=== PATIENT | male | born 1990 | race Caucasian/White ===

== ENCOUNTER 2019-07-13 13:48 | Inpatient (IN) | payer MEDICAID, OTHER ==
[~2019-07-13] VITALS: Ht 165.1 cm; Wt 56.2 kg
[2019-07-13 13:53] VITALS: BP 121/77
--- NOTE | 2019-07-13 13:59 | NUR ---
PT IN WHEELCHAIR TO ER BED 09
--- NOTE | 2019-07-13 14:10 | NUR ---
c/o multiple spider bites to bilat legs. x 4 days. pt temp 100.3 and hr 120. Pt admits to drinking 3-4 shots of vodka & smoking meth today to help cope with the pain. Pt awake , alert , afibrile ,sce,cbs blf, flat nabs , nontender,rt leg nodule , inflamed c/o pain 5/1o . hx: none rx: none
--- NOTE | 2019-07-13 14:11 | NUR ---
dr cervantes at bedside evaluating pt.
[2019-07-13] MEDS ORDERED: NACL 0.9% 1,000 ML IV SCH (14:21)
[2019-07-13] MEDS ORDERED: VANCOMYCIN 1,000 MG in DEXTROSE 5% 250 ML IV ONE (14:25)
[2019-07-13] MEDS ORDERED: MORPHINE SULFATE 4 MG/ML SYR IVP ONE (14:25)
[2019-07-13] MEDS ORDERED: VANCOMYCIN 1,000 MG VIAL ONE ×2 (14:33→22:41)
[2019-07-13 14:50] LABS: BASOPHILS # (AUTO) 0.1 K/uL (0.00-0.22); BASOPHILS % (AUTO) 0.8 % (0.0-2.0); EOSINOPHILS # (AUTO) 0.2 K/uL (0-0.4); EOSINOPHILS % (AUTO) 1.4 % (0.0-4.0); HEMATOCRIT 47.3 % (36-52); HEMOGLOBIN 15.8 g/dL (12.0-18.0); LYMPHOCYTES # (AUTO) 1.4 K/uL (2.0-11.5); LYMPHOCYTES % (AUTO) 10.5 % (20.5-51.1); MEAN CORPUSCULAR HEMOGLOBIN 31 pg (27-31); MEAN CORPUSCULAR HGB CONC 33 g/dL (33-37); MEAN CORPUSCULAR VOLUME 92.9 fL (80-94); MONOCYTES # (AUTO) 1.2 K/uL (0.8-1.0); MONOCYTES % (AUTO) 9.3 % (1.7-9.3); NEUTROPHILS # (AUTO) 10.2 K/uL (1.8-7.7); PLATELET COUNT (AUTO) 368 K/uL (140-450); RED CELL DISTRIBUTION WIDTH 13.7 % (11.6-13.7); WHITE BLOOD COUNT (AUTO) 13.1 K/uL (4.8-10.8)
--- NOTE | 2019-07-13 14:53 | NUR ---
xray at bedside.
[2019-07-13 15:16] LABS: ALBUMIN 3.1 g/dL (3.4-5.0); ANION GAP 13.1 (8-16); CARBON DIOXIDE 27.9 mmol/L (21-32); CREATININE 0.8 mg/dL (0.6-1.3); TOTAL BILIRUBIN 0.3 mg/dL (0.0-1.0)
--- NOTE | 2019-07-13 15:16 | NUR ---
pt lying in bed comfortably ,pt awake ,alert, no complaint ,side rails up x2 and lock.
--- NOTE | 2019-07-13 15:56 | NUR ---
pt to br doing number 2 via wheelchair awake ,alert.
--- NOTE | 2019-07-13 16:00 | NUR ---
pt back from br via wheelchair collected urine .
[2019-07-13 16:15] LABS: APPEARANCE,URINE CLEAR (CLEAR); BILIRUBIN,URINE NEGATIVE (NEGATIVE); BLOOD, URINE NEGATIVE (NEGATIVE); COLOR,URINE YELLOW (YELLOW); LEUKOCYTE ESTERASE ,URINE NEGATIVE (NEGATIVE); NITRITE, URINE NEGATIVE (NEGATIVE); UGLUCOSE NEGATIVE (NEGATIVE)
[2019-07-13] MEDS ORDERED: ACETAMINOPHEN 325 MG TAB PO PRN (16:25)
[2019-07-13] MEDS ORDERED: ONDANSETRON 4 MG/2 ML VIAL IM/IVP PRN (16:25)
[2019-07-13] MEDS ORDERED: MORPHINE SULFATE 2 MG/ML SYR IVP PRN (16:25)
[2019-07-13] MEDS ORDERED: DOCUSATE SODIUM 100 MG GELCAP PO PRN (16:25)
[2019-07-13] MEDS ORDERED: NACL 0.9% 1,000 ML IV ONE (16:35)
[2019-07-13] MEDS ORDERED: PIPERACILLIN/TAZOBACTAM 3.375 GM in DEXTROSE 5% 50 ML IV ONE (16:35)
[2019-07-13] MEDS ORDERED: LIDOCAINE MPF 1% 5 ML ONE (16:40)
--- NOTE | 2019-07-13 16:50 | NUR ---
dr cervantes lidocaine verbal order for i and d procedure charge nurse ryan informed and aware.
[2019-07-13 16:54] LABS: BARBITURATE, URINE NEGATIVE ng/ml (NEG <=200); BENZODIAZEPINE, URINE NEGATIVE ng/mL (NEG <=200)
[2019-07-13 16:55] LABS: PHENCYCLIDINE SCREEN,URINE NEGATIVE ng/mL (NEG <=25)
[2019-07-13 16:56] LABS: CANNABINOID, URINE NEGATIVE ng/mL (NEG <=50); COCAINE, URINE NEGATIVE ng/mL (NEG <=300); OPIATE, URINE POSITIVE ng/mL (NEG <=2000)
[2019-07-13 17:00] LABS: MAGNESIUM 2.3 mg/dL (1.8-2.4); PHOSPHORUS 2.5 mg/dL (2.5-4.9); THYROID STIMULATING HORMONE 0.45 uIU/mL (0.34-3.74)
[2019-07-13] MEDS ORDERED: KETOROLAC 30 MG/ML VIAL IVP ONE (17:00)
[2019-07-13] MEDS ORDERED: KETOROLAC 30 MG/ML VIAL IVP SCH (17:10)
--- NOTE | 2019-07-13 17:10 | NUR ---
Patient will be admitted to care of dr garcia . Admited to [facility] . Will go to room 112 b [place] list completed. Report to edy maldonado.
--- NOTE | 2019-07-13 17:10 | NUR ---
RECEIVED REPORT FROM ER NURSE. ADMITTED 28 Y/O MALE WITH A CC OF SPIDER BITES BEHIND THE LEGS, DX OF CELLULITIS AND ABSCESS OF RIGHT LEG. AOX4, VERBAL IN MALAGASY, AMBULATORY WITH ASSIST, WITH C/O ACHING PAIN ON LEGS 610, NO SOB. FULL CODE, NO KNOWN ALLERGIES. WITH IV ON L AC 20G. STARTED ON NS 100CC/HR ORDERED. I&D DONE IN ER. PROVIDED ORIENTATION ON HOSPITAL ENVIRONMENT. REVIEWED PLAN OF CARE. PT VERBALIZED UNDERSTANDING. CALL LIGHT WITHIN REACH. WILL CONT TO MONITOR.
[2019-07-13] MEDS ORDERED: VANCOMYCIN PER PHARMACY MC PRN (17:15)
[2019-07-13] MEDS ORDERED: PIPERACILLIN/TAZOBACTAM 3.375 GM VIAL IV ONE ×2 (17:40→21:07)
--- NOTE | 2019-07-13 17:45 | NUR ---
TORADOL IVP AND ZOSYN IVPB GIVEN ORDERED. INFUSING WELL.
[2019-07-13] MEDS: NACL 0.9% 1,000 ML IV SCH (17:46)
[2019-07-13] MEDS ORDERED: KETOROLAC 30 MG/ML VIAL IVP PRN (18:15)
[2019-07-13] MEDS ORDERED: VANCOMYCIN HCL 1,250 MG in NACL 0.9% 250 ML IV SCH (18:35)
--- NOTE | 2019-07-13 19:25 | NUR ---
RECEIVED ENDORSEMENT FROM RN DAYSHIFT NURSES AT BEDSIDE FOR CONTINUITY CARE. PT SLEEPING IN BED RESPIRATIONS EVEN AND UNLABORED. IV SITE LAC 20 GUAGE INTACT AND ASYMPTOMATIC RUNNING NORMAL SALINE AT 100MLS/HR. ALL UNIVERSAL FALLS PRECAUTIONS IN PLACE.
--- NOTE | 2019-07-13 19:26 | NUR ---
ENDORSED TO TEMPERER NURSE FOR CONTINUITY OF CARE. PT IN STABLE CONDITION
[2019-07-13 20:00] VITALS: BP 105/58
[2019-07-13] MEDS: PIPERACILLIN/TAZOBACTAM 3.375 GM in DEXTROSE 5% 50 ML IV SCH (21:12)
--- NOTE | 2019-07-13 21:15 | NUR ---
PT IN BED AOX4, HE SAID THAT HE WAS ABLE TO SAFELY GO TO THE RESTROOM ON HIS OWN. PT HAS 2 DRESSING FROM POST I AND D IN ER. RIGHT DRESSING WAS BLEEDING THROUGH , MORE PRESSURE DRESSINGS APPLIED TO LEG. LEFT DRESSING HAD MINIMAL BLOODY DRAINAGE, WHICH WAS ALSO REINFORCED. PT WAS GIVEN DUE MEDS OF IV ABT ZOSYN EDUCATION REGARDING MEDICATION PROVIDED AT BEDSIDE INCLUDING SIDE EFFECTS, PT VERBALIZED UNDERSTANDING. PT V/S FOLLOWS T 98.3 P 63 R 16 B/P 105/58. PT DENIES PAIN AT THIS TIME ANDS ALL REQUESTED NEEDS ATTENDED BY STAFF.
[2019-07-13] MEDS ORDERED: VANCOMYCIN 500 MG VIAL ONE (22:40)
--- NOTE | 2019-07-13 23:00 | NUR ---
VANCOMYCIN HUNG AND RUNNING AT 167MLS/HR ORDERED. PT DENIES ANY PAIN DRESSINGS OF R AND LEFT LEGS ARE DRY AND INTACT. IV SITE INTACT AND ASYMPTOMATIC. ALL UNIVERSAL FALLS PRECAUTIONS IN PLACE.
--- NOTE | 2019-07-14 01:00 | NUR ---
PT IN BED RESTING BUT AROUSABLE TO NAME, PT REQUESTED FOOD WHICH WAS BROUGHT TO HIM. HE DENIES ANY PAIN AT THIS TIME. V/S FOLLOWS: T 98.6 P 88 R 18 B/P 100/58 02 98%. ALL UNIVERSAL FALLS PRECAUTIONS IN PLACE.
[2019-07-14] MEDS ORDERED: PIPERACILLIN/TAZOBACTAM 3.375 GM VIAL IV ONE (05:31)
[2019-07-14] MEDS: NACL 0.9% 1,000 ML IV SCH ×3 (05:41→23:22)
[2019-07-14] MEDS: PIPERACILLIN/TAZOBACTAM 3.375 GM in DEXTROSE 5% 50 ML IV SCH ×2 (05:41→13:14)
[2019-07-14 06:07] LABS: BASOPHILS # (AUTO) 0.1 K/uL (0.00-0.22); BASOPHILS % (AUTO) 0.7 % (0.0-2.0); EOSINOPHILS # (AUTO) 0.4 K/uL (0-0.4); EOSINOPHILS % (AUTO) 4.1 % (0.0-4.0); HEMATOCRIT 41.4 % (36-52); LYMPHOCYTES # (AUTO) 1.4 K/uL (2.0-11.5); LYMPHOCYTES % (AUTO) 13.3 % (20.5-51.1); MEAN CORPUSCULAR HEMOGLOBIN 31 pg (27-31); MEAN CORPUSCULAR HGB CONC 34 g/dL (33-37); MEAN CORPUSCULAR VOLUME 93.2 fL (80-94); MONOCYTES # (AUTO) 1.1 K/uL (0.8-1.0); MONOCYTES % (AUTO) 10.7 % (1.7-9.3); NEUTROPHILS # (AUTO) 7.6 K/uL (1.8-7.7); NEUTROPHILS % (AUTO) 71.2 % (42.2-75.2); PLATELET COUNT (AUTO) 337 K/uL (140-450); RED BLOOD CELL COUNT(AUTO) 4.44 MIL/uL (4.20-6.10); RED CELL DISTRIBUTION WIDTH 13.5 % (11.6-13.7); WHITE BLOOD COUNT (AUTO) 10.7 K/uL (4.8-10.8)
[2019-07-14 06:28] LABS: ANION GAP 10.3 (8-16); CARBON DIOXIDE 29.7 mmol/L (21-32)
[2019-07-14 06:31] LABS: CHOL/HDL RATIO 2.6 (1-4.5)
[2019-07-14 06:42] LABS: MAGNESIUM 2.2 mg/dL (1.8-2.4); PHOSPHORUS 2.8 mg/dL (2.5-4.9)
--- NOTE | 2019-07-14 07:30 | NUR ---
RECEIVED REPORT FROM COLLECTIONS OFFICER NURSE, PARMINDER, FOR CONTINUITY OF CARE. PT IS RESTING IN BED, AROUSABLE TO VOICE. A&OX4. RESPIRATIONS ARE EVEN AND UNLABORED, BREATHING TO RA. IV IS PATENT AND INTACT, RUNNING PER MD ORDERS. STATUS POST I&D, ON LEG, DRESSING IN PLACE. SAFETY MEASURES IN PLACE; CALL LIGHT WITHIN REACH, BED IN LOW POSITION. NO DISTRESS NOTED. WILL CONTINUE TO MONITOR.
[2019-07-14 08:00] VITALS: BP 118/48
--- NOTE | 2019-07-14 08:25 | NUR ---
PATIENT HAS BEEN SCREENED AND CATEGORIZED LOW NUTRITION RISK. PATIENT WILL BE SEEN WITHIN 7 DAYS OF ADMISSION. 07/20/[address]
[2019-07-14] MEDS: LACTOBACILLUS RHAMNOSUS GG 1 EACH CAP PO SCH (09:32)
--- NOTE | 2019-07-14 09:32 | NUR ---
ADMINISTERED MED PER MD ORDER, MED EDUCATION PROVIDED AND PT VERBALIZED OK. PT IS AWAKE AND RESTING ON BED AT THIS TIME. DENIED PAIN, SOB AND DIZZINESS. NO SIGNS OF DISTRESS NOTED. PT REQUESTED FOR PAULO, PROVIDED. SAFETY MEASURES IN PLACE. INSTRUCTED PT TO USE THE CALL LIGHT FOR ANY ASSISTANCE AND PT AWARE.
--- NOTE | 2019-07-14 10:10 | NUR ---
WOUND CARE EVALUATION NOTE: WOUND CARE ASSESSMENT DONE TO THIS 28 Y/O M WITH S/P I&D TO RIGHT POSTERIOR KNEE AND LEFT CALF. PT. IS AAX4, PER PT. HE GOT A SPIDER BITES BUT NEVER SEEN AN SPIDER. PT. HAD AN I&D AT ED. POC DISCUSSED WITH PRIMARY RN, DR. TORRES AND PT. PT. VERBALIZES UNDERSTANDING. - LEFT CALF S/P I&D WOUND 0.3X0.3X0.2CM WOUND BED IS 100% PINK, MOIST, NO ODOR, TING-WOUND SKIN INTACT, PAIN 0/10 -RIGHT POPLITEAL FOSSA S/P I&D WOUND 2X2.5X0.1CM WOUND BED IS LIGHT BROWN, MODERATE AMOUNT PURULENT DRAINAGE WITH MILD ODOR, TING-WOUND SKIN INTACT WITH INDURATION, PAIN 0/10 RECOMMENDATIONS: -SURGEON TO CONSULT -CLEANSE RIGHT POSTERIOR KNEE AND LEFT CALF WITH NS. PAT DRY, APPLY BACITRACIN OINTMENT AND COVER WITH DRY DRESSING CHANGE QD AND PRN IF SOILING.
--- NOTE | 2019-07-14 10:23 | NUR ---
DISCHARGE PLANNING: THIS IS A 28 Y/O MALE PATIENT FROM HOME, WHO CAME IN DUE TO BILATERAL LEG PAIN. NO SIGNIFICANT PAST MEDICAL HISTORY. INITIAL DIAGNOSIS OF CELLULITIS AND ABSCESS OF THE RIGHT LEG. CURRENT LABS INCLUDE WBC 10.7, H/H 14.0/41.4, NA/K 141/4.0, BUN/CREA 18/1.0. ON VANCOMYCIN IV AND ZOSYN. ID CONSULT IN PLACE. DC PLAN BACK TO HOME ONCE STABLE. Addendum: 07/15/19 at 1420 by Hanna Leslie CM DC PLANNING S/P I&D OF RIGHT POSTERIOR KNEE ABSCESS. AND LEFT POSTERIOR CALF AND THIGH PUSTULES BY DR MEYER , SEEN BY DR MONTANA WALDROP RECOMMENDED TO DC ZOSYN AND CONTINUE VANCOMYCIN IV AND AWAITING FOR WOUND CULTURES. CM TO FOLLOW.
[2019-07-14] MEDS: VANCOMYCIN 750 MG in DEXTROSE 5% 250 ML IV SCH ×2 (11:20→23:25)
--- NOTE | 2019-07-14 11:20 | NUR ---
PT IS SLEEPING IN BED, AROUSABLE TO VOICE. VANCO IVP WAS HUNG AND RUNNING ACCORDING TO MD ORDERS. MEDICATION EDUCATION PROVIDED TO PATIENT. NPO WAS ORDERED BY MD, INFORMED PT. SIGN POSTED BY DOOR. NO DISTRESS NOTED. SAFETY MEASURES IN PLACE. WILL CONTINUE TO MONITOR.
[2019-07-14] MEDS: BACITRACIN OINT 15000 UNITS/30 GM TUBE TP SCH (13:00)
--- NOTE | 2019-07-14 13:14 | NUR ---
DR MEYER EXPLAINED TO PT ABOUT I&D ON LEGS, EXPLAINED TO PT ON RISKS AND BENEFITS, PT AWARE. CONSENT OBTAINED. PT IS AWAKE AND RESTING ON BED. NO SIGNS OF DISTRESS NOTED. SAFETY MEASURES IN PLACE.
--- NOTE | 2019-07-14 13:19 | NUR ---
PT'S SCHEDULED ANTIBIOTIC WAS HUNG, MED EDUCATION PROVIDED. CRYSTAL REPORT DEVELOPER DONE WOUND CARE EARLIER, DRESSING CLEAN AND INTACT. PT IS RESTING ON BED. NO SIGNS OF NOTED. SAFETY MEASURES IN PLACE.
--- NOTE | 2019-07-14 13:25 | NUR ---
PT IS OFF UNIT TO OR AND ACCOMPANIED WITH OR NURSES. PT IS IN STABLE CONDITION.
[2019-07-14] MEDS ORDERED: BUPIVACAINE-MPF 0.5% 30 ML VIAL INJ ONE ×2 (13:37→13:55)
[2019-07-14] MEDS ORDERED: fentaNYL 0.05 MG/ML VIAL ONE (13:38)
[2019-07-14] MEDS ORDERED: KETOROLAC 30 MG/ML VIAL ONE (13:38)
[2019-07-14] MEDS ORDERED: PROPOFOL 200 MG/20 ML VIAL IV ONE (13:38)
[2019-07-14] MEDS ORDERED: BUPIVACAINE-MPF 0.5% 10 ML VIAL INJ ONE (13:38)
[2019-07-14] MEDS ORDERED: ONDANSETRON 4 MG/2 ML VIAL ONE (13:38)
[2019-07-14] MEDS ORDERED: SEVOFLURANE 250 ML BTL INH ONE (13:38)
--- NOTE | 2019-07-14 14:50 | NUR ---
PT IS BACK ON UNIT FROM THE OR. VITAL SIGNS TAKEN: TEMP 97.9, BP 104/64, PULSE 73, RR 18, SPO2 98%, DENIED PAIN. PT REQUESTED FOR A SANDWICH AND WILL PAGE FNS. PT IS EATING JELLO AT THIS TIME. NO SIGNS OF DISTRESS NOTED.
[2019-07-14 16:00] VITALS: BP 110/57
--- NOTE | 2019-07-14 17:00 | NUR ---
PT IS RESTING IN BED, AROUSABLE TO VOICE. NO DISTRESS NOTED. SAFETY MEASURES IN PLACE. WILL CONTINUE TO MONITOR.
--- NOTE | 2019-07-14 19:15 | NUR ---
RECEIVED REPORT FROM RIGOBERTO RN DAYSHIFT NURSES AT BEDSIDE FOR CONTINUITY OF CARE, PT IN STABLE CONDITION. PT IN BED RESTING WITH EYES CLOSED, BUT AROUSABLE TO NAME. PT HAS IV SITE LAC 20G INTACT AND RUNNING NORMAL SALINE AT 100MLS/HR. PT HAS 2 BANDAGED SITES ON LEFT LEG FROM 2ND I AND D TODAY. BAND-AIDS HAVE MINIMAL SEROSANGUINEOUS DRAINAGE. ON RIGHT LEG PT HAS KURLEX COVERED BANDAGE WITH MINIMAL SEROSANGUINEOUS DRAINAGE WELL. PT DENIES PAIN AT THIS TIME. V/S FOLLOWS: T 97.9 P 67 R 16 B/P 104/56 02 97% ON ROOM AIR. ALL UNIVERSAL FALLS PRECAUTIONS IN PLACE.
--- NOTE | 2019-07-14 19:18 | NUR ---
GAVE REPORT TO [facility] CONTACT REPRESENTATIVE NURSE, PARMINDER, FOR CONTINUITY OF CARE. PT IS RESTING IN BED. PT IS IN STABLE CONDITION.
[2019-07-14] MEDS: HYDROcodone/APAP 7.5/325 MG 1 TAB PO PRN (21:21)
--- NOTE | 2019-07-14 21:30 | NUR ---
PT IN BED C/OF MODERATE PAIN IN NECK 5/10, WELL BEING HUNGRY. PT WAS GIVEN 1 TAB NORCO PO/PRN ORDERED. PT ALSO GIVEN REQUESTED FOOD. WILL CONTINUE TO MONITOR PT FOR PAIN RELIEF.
--- NOTE | 2019-07-14 23:12 | NUR ---
NEW BAG OF NORMAL SALINE HUNG WELL ORDERED IV ABT VANCOMYCIN HUNG AND RUNNING AT 165MLS/HR ORDERED. PT JOSE G PAIN IN BED RESTING WITH EEYS CLOSED . ALL FALLS PRECAUTIONS IN PLACE.
[2019-07-15] VITALS: BP 92/52
[2019-07-15 06:12] LABS: HEPATITIS A ANTIBODY IGM Negative (Negative); HEPATITIS B CORE AB TOTAL Negative (Negative); HEPATITIS B SURFACE ANTIBODY Reactive (.); HEPATITIS B SURFACE ANTIGEN Negative (Negative)
--- NOTE | 2019-07-15 07:10 | NUR ---
RECEIVED PT. FROM HEAD OF MEASUREMENT & INSIGHTS NURSEPAMRINDER. PT. IS ASLEEP AND IN BED. IV SITE ON THE RIGHT FOREARM 20G WITH NS RUNNING AT 100ML/HR. IV SITE IS PATENT AND FLUSHES WELL. PT. IS ON ROOM AIR WITH O2 STAT AT 97%. NO SIGNS OF DISTRESS NOTED AND PT. VERBALIZES NO PAIN. CALL LIGHT WITHIN REACH. PLAN OF CARE DISCUSSED. WILL CONTINUE TO MONITOR.
[2019-07-15 08:00] VITALS: BP 112/58
[2019-07-15 08:30] LABS: BASOPHILS # (AUTO) 0.1 K/uL (0.00-0.22); BASOPHILS % (AUTO) 1.1 % (0.0-2.0); EOSINOPHILS # (AUTO) 0.6 K/uL (0-0.4); EOSINOPHILS % (AUTO) 6.4 % (0.0-4.0); HEMATOCRIT 42.4 % (36-52); HEMOGLOBIN 14.1 g/dL (12.0-18.0); LYMPHOCYTES # (AUTO) 1.6 K/uL (2.0-11.5); MEAN CORPUSCULAR HEMOGLOBIN 31 pg (27-31); MEAN CORPUSCULAR HGB CONC 33 g/dL (33-37); MEAN CORPUSCULAR VOLUME 94.2 fL (80-94); MONOCYTES # (AUTO) 0.7 K/uL (0.8-1.0); MONOCYTES % (AUTO) 8.3 % (1.7-9.3); NEUTROPHILS # (AUTO) 5.9 K/uL (1.8-7.7); NEUTROPHILS % (AUTO) 66.2 % (42.2-75.2); PLATELET COUNT (AUTO) 347 K/uL (140-450); RED CELL DISTRIBUTION WIDTH 13.6 % (11.6-13.7)
[2019-07-15 08:40] LABS: ANION GAP 10.2 (8-16); CARBON DIOXIDE 28.3 mmol/L (21-32); CREATININE 0.9 mg/dL (0.6-1.3); POTASSIUM 4.5 mmol/L (3.5-5.1)
[2019-07-15 08:44] LABS: PHOSPHORUS 3.3 mg/dL (2.5-4.9)
--- NOTE | 2019-07-15 09:05 | NUR ---
LABORATORY CALLED FOR POSITIVE OF MRSA OF THE NARES. REPORTED TO DR. ELIZABETH. WILL PLACE ORDER. WILL CONTINUE TO MONITOR.
[2019-07-15] MEDS: LACTOBACILLUS RHAMNOSUS GG 1 EACH CAP PO SCH (10:45)
[2019-07-15] MEDS: VANCOMYCIN 1,000 MG in DEXTROSE 5% 250 ML IV SCH ×2 (10:45→21:00)
--- NOTE | 2019-07-15 10:45 | NUR ---
VANCOCIN IV GIVEN. NO SIGNS OF DISTRESS NOTED. PT. COMPLAINS BEING HUNGRY AFTER BREAKFAST AND REQUESTS TO EAT A SANDWICH. WILL FOLLOW THROUGH AND CONTINUE TO MONITOR.
[2019-07-15] MEDS ORDERED: MUPIROCIN CA NASAL 2% 1GM TUBE NS SCH (13:00)
[2019-07-15] MEDS: BACITRACIN OINT 15000 UNITS/30 GM TUBE TP SCH (13:00)
[2019-07-15] MEDS ORDERED: CHLORHEXADINE GLUC 2% CLOTH TP SCH (13:00)
--- NOTE | 2019-07-15 13:00 | NUR ---
WOUND DRESSINGS AND BACITRACIN OINTMENT PLACED ON WOUNDS. NO SIGNS OF DISTRESS NOTED. MINIMAL DISCHARGE WERE SEEN AND WOUND SITES WERE ASSESSED. WILL CONTINUE TO MONITOR.
[2019-07-15] MEDS: NACL 0.9% 1,000 ML IV SCH ×2 (14:43→21:00)
--- NOTE | 2019-07-15 15:25 | NUR ---
LABORATORY CALLED FOR PRESUMPTIVE POSITIVE OF MRSA FROM LEG WOUND CULTURE. REPORTED TO DR. ANN. NO NEW ORDERS GIVEN. WILL CONTINUE TO MONITOR.
[2019-07-15 16:00] VITALS: BP 104/65
--- NOTE | 2019-07-15 19:15 | NUR ---
ENDORSED PT. TO IMMUNOHEMATOLOGIST NURSE, PATRICIA, FOR CONTINUITY OF CARE.
--- NOTE | 2019-07-15 19:26 | NUR ---
RECEIVED PATIENT FROM AM SHIFT NURSE IN STABLE CONDITION FOR CONTINUITY OF CARE. RESPIRATIONS EVEN, UNLABORED. IV SITE NOTED TO RIGHT FOREARM 20G PATENT/INTACT, INFUSING FLUIDS WELL. NO C/O PAIN. NO S/SX ACUTE DISTRESS. ISOLATION PRECAUTIONS OBSERVED. CALL LIGHT WITHIN REACH. WILL CONTINUE TO MONITOR.
--- NOTE | 2019-07-15 19:30 | NUR ---
RECD. RESTING IN BED, RESPIRATION EVEN AND UNLABORED. IV OF NS AT 100 ML/HR INFUSING, RIGHT FOREARM G22. SURGICAL INCISION IN THE BACK OF RIGHT KNEE AND LEFT LEG COVERED WITH DRESSING, DRY AND INTACT. PLAN OF CARE FOR THE SHIFT DISCUSSED. VERBALIZED UNDERSTANDING. PAIN IN THE LOWER LEGS, 05/02, WILL MEDICATE ORDERED.
--- NOTE | 2019-07-15 19:45 | NUR ---
SLEEPING COMFORTABLY IN BED, NO DISTRESS NOTED.
--- NOTE | 2019-07-15 21:08 | NUR ---
Patient's Plan of Care was discussed and reviewed with COMMUNICATION ENGINEER: RAUL HUERTA
[2019-07-15] MEDS: HYDROcodone/APAP 7.5/325 MG 1 TAB PO PRN (22:00)
--- NOTE | 2019-07-15 22:00 | NUR ---
SNACK GIVEN REQUESTED, MEDICATED FOR PAIN. WATCHING TV.
[2019-07-16] VITALS: BP 120/6
--- NOTE | 2019-07-16 | NUR ---
SLEEPING COMFORTABLY, NO APPEARANCE OF PAIN NOTED, FLACC -0.
--- NOTE | 2019-07-16 02:00 | NUR ---
REQUESTED FOR SNACK, SANDWICH GIVEN.
--- NOTE | 2019-07-16 04:00 | NUR ---
SLEEPING COMFORTABLY IN BED.
[2019-07-16] MEDS: NACL 0.9% 1,000 ML IV SCH (04:23)
--- NOTE | 2019-07-16 07:00 | NUR ---
CONDITION REMAIN STABLE. ALL NEEDS ATTENDED. WILL ENDORSE TO AM SHIFT NURSE FOR CONTINUITY OF CARE.
--- NOTE | 2019-07-16 07:06 | NUR ---
RECEIVED REPORT FROM TELEHEALTH DIRECTOR NURSE, RAUL, FOR CONTINUITY OF CARE. PT IS RESTING IN BED, AROUSABLE TO VOICE. A&OX4. RESPIRATIONS ARE EVEN AND UNLABORED, BREATHING TO RA. RFA IV IS PATENT AND INTACT, INFUSING PER MD ORDERS. NOTED WITH DRESSING TO RIGHT POSTERIOR KNEE, LEFT CALF. SAFETY MEASURES IN PLACE; CALL LIGHT WITHIN REACH, BED IN LOW POSITION. WILL CONTINUE TO MONITOR.
[2019-07-16 07:35] LABS: HEMATOCRIT 42.1 % (36-52); HEMOGLOBIN 14.1 g/dL (12.0-18.0); MEAN CORPUSCULAR HEMOGLOBIN 31 pg (27-31); MEAN CORPUSCULAR HGB CONC 34 g/dL (33-37); MEAN CORPUSCULAR VOLUME 93.5 fL (80-94); PLATELET COUNT (AUTO) 356 K/uL (140-450); RED BLOOD CELL COUNT(AUTO) 4.51 MIL/uL (4.20-6.10); RED CELL DISTRIBUTION WIDTH 13.7 % (11.6-13.7); WHITE BLOOD COUNT (AUTO) 8.4 K/uL (4.8-10.8)
[2019-07-16 07:45] LABS: ANION GAP 11.2 (8-16); CARBON DIOXIDE 28.1 mmol/L (21-32); CREATININE 0.9 mg/dL (0.6-1.3); POTASSIUM 4.3 mmol/L (3.5-5.1)
[2019-07-16] MEDS ORDERED: SULF-59 PO (08:08)
[2019-07-16] MEDS ORDERED: LACT10CA1 PO (08:08)
[2019-07-16] MEDS: LACTOBACILLUS RHAMNOSUS GG 1 EACH CAP PO SCH (08:55)
[2019-07-16 09:18] LABS: BASOPHILS % (MANUAL) 1 % (0-2); EOSINOPHILS % (MANUAL) 5 % (0-4); MONOCYTES % (MANUAL) 8 % (5-12)
[2019-07-16 09:20] LABS: LYMPHOCYTES % (MANUAL) 21 % (20-46)
--- NOTE | 2019-07-16 11:30 | NUR ---
PT WAS DISCHARGED TODAY. DISCHARGE INSTRUCTIONS GIVEN TO PT, PT VERBALIZED UNDERSTANDING. IV WAS REMOVED, CATHETER INTACT, NO ACTIVE BLEEDING NOTED. ID BAND REMOVED. PT STABLE AT DISCHARGE. PT WALKED WITH STEADY GAIT. PT DID NOT HAVE SHOES, CALLED SECURITY. SECURITY DID NOT HAVE SHOES OR SANDALS. PT WORE SOCKS. PT CALLED FATHER TO BEAN SPROUT LABORER. PT WILL FOLLOW UP WITH PCP WITHIN TWO DAYS OF DISCHARGE. WOUND PHOTOGRAPHS TAKEN. NO COMPLAINTS OF PAIN. NO DISTRESS NOTED.
== END 2019-07-16 11:30 | disposition home or self-care (01) | DRG 720 ==
LOC: MED 13:48 → MTU 16:23
PROVIDERS: ADMIT General Practice; ATTEND General Practice
PROC: 0Y9F0ZZ Drainage of Right Knee Region, Open Approach (ICD-10-PCS; principal; 2019-07-13)
PROC: 0Y9J0ZZ Drainage of Left Lower Leg, Open Approach (ICD-10-PCS; 2019-07-13)
PROC: 0JBP0ZZ Excision of Left Lower Leg Subcutaneous Tissue and Fascia, Open Approach (ICD-10-PCS; 2019-07-14)
PROC: 0JBN0ZZ Excision of Right Lower Leg Subcutaneous Tissue and Fascia, Open Approach (ICD-10-PCS; 2019-07-14)
DX: A41.9 Sepsis, unspecified organism (principal); E44.0 Moderate protein-calorie malnutrition; L02.415 Cutaneous abscess of right lower limb; E87.1 Hypo-osmolality and hyponatremia; L03.115 Cellulitis of right lower limb; Z68.20 Body mass index [BMI] 20.0-20.9, adult; W57.XXXA Bitten or stung by nonvenomous insect and other nonvenomous arthropods, initial encounter; F15.90 Other stimulant use, unspecified, uncomplicated; R73.9 Hyperglycemia, unspecified; F17.210 Nicotine dependence, cigarettes, uncomplicated; B95.62 Methicillin resistant Staphylococcus aureus infection as the cause of diseases classified elsewhere; Y93.89 Activity, other specified; Y92.89 Other specified places as the place of occurrence of the external cause; Z71.51 Drug abuse counseling and surveillance of drug abuser; Z71.6 Tobacco abuse counseling
CPT/HCPCS: 36415; 71045; 73562; 80048; 80053; 80202; 80305; 81003; 83605; 83735; 84100; 84443; 85025; 86704; 86706; 86708; 86709; 86803; 87040; 87070; 87075; 87081; 87086; 87186; 87205; 87340; 96365; 96375; 99285; J1885; J2001; J2270; J2405; J2543; J2704; J3010; J3370; J3490; J7030; J7060; Q0092

== ENCOUNTER 2020-02-06 16:05 | Emergency (ER) | payer MEDICAID ==
[~2020-02-06] VITALS: Ht 165.1 cm; Wt 54.4 kg
[~2020-02-06 16:05] MED LIST: LACT10CA1 PO; SULF-59 PO
[2020-02-06 16:14] VITALS: BP 117/74
--- NOTE | 2020-02-06 16:18 | NUR ---
Patient taken to bed 3 via wheelchair by tech. RN evaluating the patient at bedside.
--- NOTE | 2020-02-06 16:19 | NUR ---
Dr. Layton is evaluating the patient at bedside.
--- NOTE | 2020-02-06 16:30 | NUR ---
29 YEAR OLD MALE COMPLAINS OF LEFT KNEE PAIN X 4 DAYS. PT STATES HIS KNEE GOT CUT BY GLASS AND THAT IT HAS BEEN GETTING MORE PAINFUL EVER SINCE. SITE WITH VISIBLE INFLAMMATION, REDDENED. PT AOX4 BREATHING EVEN AND UNLABORED, SKIN WARM AND DRY. BED IN LOWEST POSITION, LOCKED, BED RAIL UPX1. PMH - DENIES ALLERGIES - NKA
[2020-02-06] MEDS ORDERED: cefTRIAXone 2,000 MG in DEXTROSE 5% 100 ML IV STA (16:32)
[2020-02-06] MEDS ORDERED: VANCOMYCIN 1GM/DEXT 5% PREMIX 200 ML IV STA (16:32)
[2020-02-06] MEDS ORDERED: MORPHINE SULFATE 4 MG/ML SYR IVP ONE (16:35)
[2020-02-06] MEDS ORDERED: NACL 0.9% 1,000 ML IV ONE (16:35)
[2020-02-06] MEDS ORDERED: VANCOMYCIN PER PHARMACY MC PRN (16:35)
[2020-02-06] MEDS ORDERED: ONDANSETRON 4 MG/2 ML VIAL IVP ONE (16:35)
[2020-02-06] MEDS ORDERED: cefTRIAXone 2,000 MG VIAL ONE (16:48)
[2020-02-06 16:58] LABS: BASOPHILS # (AUTO) 0.1 K/uL (0.00-0.22); BASOPHILS % (AUTO) 0.6 % (0.0-2.0); EOSINOPHILS # (AUTO) 0.1 K/uL (0-0.4); EOSINOPHILS % (AUTO) 0.7 % (0.0-4.0); HEMATOCRIT 37.3 % (36-52); HEMOGLOBIN 12.5 g/dL (12.0-18.0); LYMPHOCYTES # (AUTO) 1.1 K/uL (2.0-11.5); MEAN CORPUSCULAR HEMOGLOBIN 31 pg (27-31); MEAN CORPUSCULAR HGB CONC 34 g/dL (33-37); MEAN CORPUSCULAR VOLUME 91.7 fL (80-94); MONOCYTES # (AUTO) 1.3 K/uL (0.8-1.0); MONOCYTES % (AUTO) 8.9 % (1.7-9.3); NEUTROPHILS # (AUTO) 12.4 K/uL (1.8-7.7); NEUTROPHILS % (AUTO) 82.8 % (42.2-75.2); PLATELET COUNT (AUTO) 342 K/uL (140-450); RED BLOOD CELL COUNT(AUTO) 4.07 MIL/uL (4.20-6.10); RED CELL DISTRIBUTION WIDTH 13.2 % (11.6-13.7)
[2020-02-06 17:09] LABS: PROTHROMBIN TIME 9.5 secs (10.8-13.4)
[2020-02-06 17:20] LABS: ALBUMIN 2.9 g/dL (3.4-5.0); ANION GAP 12.7 (8-16); CARBON DIOXIDE 26.8 mmol/L (21-32); CREATININE 0.8 mg/dL (0.6-1.3); POTASSIUM 3.5 mmol/L (3.5-5.1); TOTAL BILIRUBIN 0.4 mg/dL (0.0-1.0)
[2020-02-06] MEDS ORDERED: VANCOMYCIN 1,000 MG VIAL ONE (17:25)
[2020-02-06] MEDS ORDERED: LIDOCAINE MPF 1% 10 MG/ML VIAL INJ ONE (17:35)
--- NOTE | 2020-02-06 17:53 | NUR ---
pt return from ct
--- NOTE | 2020-02-06 18:00 | NUR ---
PT ALERT AND AWAKE, BREATHING EVEN AND UNLABORED
[2020-02-06] MEDS ORDERED: LORazepam 2 MG/ML VIAL IVP STA (18:52)
[2020-02-06] MEDS ORDERED: NICOTINE TRANSD SYS 14 MG/24 HR PATCH TD STA (18:56)
--- NOTE | 2020-02-06 19:08 | NUR ---
PT ALERT AND AWAKE, BREATHING EVEN AND UNLABORED
--- NOTE | 2020-02-06 19:11 | NUR ---
REPORT RECEIVED FROM LEMUEL NUR FOR CONTINUITY OF CARE
--- NOTE | 2020-02-06 19:11 | NUR ---
REPORT GIVEN TO NAILA NUR, TRANSFER OF CARE AT THIS TIME
--- NOTE | 2020-02-06 19:30 | NUR ---
YEIMY SWAB DONE AND SENT TO LAB
--- NOTE | 2020-02-06 21:00 | NUR ---
PT RESTING IN BED EYES CLOSED, RESPIRATIONS EVEN AND UNLABORED. CHEST RISE IS SYMMETRICAL. SAFETY PRECAUTIONS IN PLACE. WILL CONTINUE TO MONITOR.
--- NOTE | 2020-02-06 22:23 | NUR ---
CALLED REPORT TO YAS NUR AT [facility].
[2020-02-06 23:20] VITALS: BP 113/68
--- NOTE | 2020-02-06 23:20 | NUR ---
Patient to be transferred to [facility]. Is being transferred due to HIGHER LEVEL OF CARE. Receiving facility has accepting physician and available space. ER physician has signed transfer form. Patient or responsible alliance party has agreed to transfer and signed form. Patient belongings inventoried and will be sent with patient. Copy of nursing notes, lab reports, EKG, Physicians Orders and X-rays to be sent with patient. Report called to YAS NUR at receiving facility. [facility] ambulance service has been called for transfer. ETA is 10 MIN.
== END 2020-02-06 23:20 | disposition short-term general hospital (02) ==
LOC: MED 16:05
DX: L03.116 Cellulitis of left lower limb (principal); L02.416 Cutaneous abscess of left lower limb; F15.10 Other stimulant abuse, uncomplicated; Z20.828 Contact with and (suspected) exposure to other viral communicable diseases; W25.XXXA Contact with sharp glass, initial encounter; Y93.89 Activity, other specified; Y92.89 Other specified places as the place of occurrence of the external cause; Y99.8 Other external cause status
CPT/HCPCS: 10060; 36415; 73701; 80053; 83605; 85025; 85610; 85651; 85730; 86140; 86886; 86900; 86901; 87040; 87426; 96365; 96366; 96368; 96375; 99285; J0696; J2001; J2060; J2270; J2405; J3370; J7030